=== PATIENT | female | born 1990 | race American Indian/Alaskan Native ===

== ENCOUNTER 2016-11-23 02:48 | Emergency (ER) | payer OTHER ==
[~2016-11-23] VITALS: Ht 157.5 cm; Wt 61.0 kg
[2016-11-23 03:09] VITALS: Ht 157.5 cm; Wt 61.0 kg
[2016-11-23 04:42] LABS: BASOPHIL # 0.1 10^3/ul (0.0-0.1); BASOPHILS % 0.5 % (0.0-2.0); EOSINOPHILS % 0.4 % (0.0-7.0); HEMATOCRIT 37.4 % (37.0-47.0); HEMOGLOBIN 12.5 g/dl (12.0-16.0); LYMPHOCYTES # 1.5 10^3/ul (0.8-2.9); LYMPHOCYTES % 13.6 % (15.0-51.0); MEAN CORPUSCULAR HEMOGLOBIN 29.8 pg (29.0-33.0); MEAN CORPUSCULAR HGB CONC 33.4 g/dl (32.0-37.0); MEAN CORPUSCULAR VOLUME 89.3 fl (82.0-101.0); MONOCYTE # 0.7 10^3/ul (0.3-0.9); MONOCYTES % 6.6 % (0.0-11.0); NEUTROPHILS % 78.4 % (39.0-77.0); PLATELET COUNT 321 10^3/UL (140-415); RED BLOOD COUNT 4.19 10^6/ul (4.20-5.40); RED CELL DISTRIBUTION WIDTH 13.1 % (11.5-14.5)
--- NOTE | 2016-11-23 04:43 | RADRPT ---
PROCEDURE: CT of the abdomen and pelvis without contrast CLINICAL INDICATION: Abdominal Pain. TECHNIQUE: Spiral CT images through the abdomen and pelvis without the use of contrast. The admin istered radiation dose is CTDI 7.55 and DLP 426.06. One or more of the following dose reduction brock hniques were used: automated exposure control, adjustment of the mA and/or kV according to patient s ize, or use of iterative reconstruction technique. COMPARISON: None FINDINGS: Lack of oral and intravenous contrast somewhat limits evaluation. The lung bases are clear. No p leural or pericardial effusion is seen.. The liver, spleen, adrenal glands and pancreas are normal in appearance. No evidence of cholelit hiasis or biliary ductal dilatation. The kidneys are normal in size and contour. There is no evide nce of hydronephrosis or nephrolithiasis.. The aorta is normal in caliber. No adenopathy or ascites . There is no evidence for bowel obstruction, free air, or abscess. The appendix is normal in appea tyra. . There is abundant stool in the sigmoid colon and rectum. The uterus and ovaries are identi fied. The bladder is decompressed. The osseous structures are intact. IMPRESSION: No definite acute abnormality of the abdomen or pelvis. RPTAT: HCNS Physician Victorino Date Time Electronically viewed and signed by Physician Victorino on 11/23/2016 04:43 CS/
--- NOTE | 2016-11-23 04:51 | ERD ---
ER Documentation Chief Complaint Date/Time DATE: 11/23/16 TIME: 04:51 Chief Complaint pelvic pain x4 hours. No dysuria or hematuria HPI 26-year-old female presents here in emergency department for complaints of suprapubic pelvic pain that started 4 hours prior to arrival. Patient states that she has not been going bowel movements regularly, last bowel movement was today, few bruna of stool. Patient states that she has been constipated. Patient does not have any nausea or vomiting. Patient does not have any fever or chills. Patient does not have any flank pain. ROS All systems reviewed and are negative except as per history of present illness. Medications Home Meds Reported Medications [none] Unknown Strength No Conflict Check 11/23/16 Allergies Allergies: Coded Allergies: No Known Allergy (Unverified , 11/23/16) PMhx/Soc Medical and Surgical Hx: pt denies Medical Hx, pt denies Surgical Hx Hx Alcohol Use: Yes Hx Substance Use: No Hx Tobacco Use: No Smoking Status: Never smoker FmHx Family History: No coronary disease, No diabetes, No other Physical Exam Vitals Vital Signs Date Time Temp Pulse Resp B/P Pulse Ox O2 Delivery O2 Flow Rate FiO2 11/23/16 03:09 98.3 95 18 123/81 99 Physical Exam GENERAL: The patient is well developed and appropriate for usual state of health, in no apparent distress. CHEST: Clear to auscultation bilaterally. There are no rales, wheezes or rhonchi. HEART: Regular rate and rhythm. No murmurs, clicks, rubs or gallops. No S3 or S4. ABDOMEN: Soft, nontender and nondistended. Good bowel sounds. No rebound or guarding. No gross peritonitis. No gross organomegaly or masses. No Coleman sign or McBurney point tenderness. BACK: No midline or flank tenderness. EXTREMITIES: Equal pulses bilaterally. There is no peripheral clubbing, cyanosis or edema. No focal swelling or erythema. Full range of motion. Grossly neurovascularly intact. NEURO: Alert and oriented. Cranial nerves 2-12 intact. Motor strength in all 4 extremities with 5/5 strength. Sensation grossly intact. Normal speech and gait. SKIN: There is no apparent rash or petechia. The skin is warm and dry. HEMATOLOGIC AND LYMPHATIC: There is no evidence of excessive bruising or lymphedema. No gross cervical, axillary, or inguinal lymphadenopathy. Result Diagram: 11/23/16 0412 11/23/16 0412 Results 24 hrs Laboratory Tests Test 11/23/16 04:12 White Blood Count 11.010^3/ul Red Blood Count 4.1910^6/ul Hemoglobin 12.5g/dl Hematocrit 37.4% Mean Corpuscular Volume 89.3fl Mean Corpuscular Hemoglobin 29.8pg Mean Corpuscular Hemoglobin Concent 33.4g/dl Red Cell Distribution Width 13.1% Platelet Count 81949^3/UL Mean Platelet Volume 10.0fl Neutrophils % 78.4% Lymphocytes % 13.6% Monocytes % 6.6% Eosinophils % 0.4% Basophils % 0.5% Nucleated Red Blood Cells % 0.0/100WBC Neutrophils # (Manual) 8.610^3/ul Lymphocytes # 1.510^3/ul Monocytes # 0.710^3/ul Eosinophils # 0.010^3/ul Basophils # 0.110^3/ul Nucleated Red Blood Cells # 0.010^3/ul Sodium Level 143mmol/L Potassium Level 3.3mmol/L Chloride Level 103mmol/L Carbon Dioxide Level 24mmol/L Anion Gap 19 Blood Urea Nitrogen 7mg/dl Creatinine 0.73mg/dl Glucose Level 107mg/dl Calcium Level 9.3mg/dl Total Bilirubin 0.1mg/dl Direct Bilirubin 0.00mg/dl Indirect Bilirubin 0.1mg/dl Aspartate Amino Transf (AST/SGOT) 24IU/L Alanine Aminotransferase (ALT/SGPT) 29IU/L Alkaline Phosphatase 102IU/L Total Protein 8.1g/dl Albumin 4.5g/dl Globulin 3.60g/dl Albumin/Globulin Ratio 1.25 Lipase 78U/L PROCEDURE: CT of the abdomen and pelvis without contrast CLINICAL INDICATION: Abdominal Pain. TECHNIQUE: Spiral CT images through the abdomen and pelvis without the use of contrast. The administered radiation dose is CTDI 7.55 and DLP 426.06. One or more of the following dose reduction techniques were used: automated exposure control, adjustment of the mA and/or kV according to patient size, or use of iterative reconstruction technique. COMPARISON: None FINDINGS: Lack of oral and intravenous contrast somewhat limits evaluation. The lung bases are clear. No pleural or pericardial effusion is seen.. The liver, spleen, adrenal glands and pancreas are normal in appearance. No evidence of cholelithiasis or biliary ductal dilatation. The kidneys are normal in size and contour. There is no evidence of hydronephrosis or nephrolithiasis.. The aorta is normal in caliber. No adenopathy or ascites. There is no evidence for bowel obstruction, free air, or abscess. The appendix is normal in appearance. . There is abundant stool in the sigmoid colon and rectum. The uterus and ovaries are identified. The bladder is decompressed. The osseous structures are intact. IMPRESSION: No definite acute abnormality of the abdomen or pelvis. RPTAT: HCNS Physician Victorino Date Time Electronically viewed and signed by Physician Victorino on 11/23/2016 04: 43 CS/ PROCEDURE: US Pelvis. CLINICAL INDICATION: pelvic pain , LMP 11/06/2016 TECHNIQUE: Multiple sonographic images of the pelvis were obtained utilizing a transabdominal technique. The images were reviewed on a PACS workstation. COMPARISON: None. FINDINGS: The exam is limited due to bowel gas and underdistended bladder. The uterus and ovaries are not visualized. No free fluid or adnexal mass is seen. IMPRESSION: Limited transabdominal exam. The uterus and ovaries are obscured by bowel gas. Physician Victorino Date Time Electronically viewed and signed by Physician Victorino on 11/23/2016 05: 28 CS/ CC: MEGHA PEDRO NP Procedures/MDM Medical Decision Making: Patient's pelvic pain abdominal pain nonspecific at this time, can be from constipation. Patient's pain is controlled at this time. No urinary tract infection noted. The suspicion for ovarian torsion.There is low suspicion for abdominal emergencies at this time. Patients abdominal exam is normal at this time. Patients radiology exam does not show any abdominal emergencies at this time. There is low suspicion for appendicitis, cholecystitis , abdominal aortic aneurysms or peritonitis at this time. There is low suspicion for sepsis. Patient appears well and is hemodynamically stable. Disposition: Home. Condition: Stable Prescription miraLAX, Colace tramadol Instructions: Patient is advised to take medications as prescribed. Patient is advised to rest, increase fluid intake and do high fiber diet for next 1-2 days and progress as tolerated. Patient is advised that if symptoms are worse, severe abdominal pain, uncontrolled vomiting, high fever, severe flank pain, worst signs and symptoms, to return to the emergency department immediately. Otherwise, patient can follow up with primary care doctor in 5-7 days. Departure Diagnosis: Primary Impression: Pelvic pain Additional Impression: Constipation Constipation type: unspecified constipation type Qualified Code: K59.00 - Constipation, unspecified constipation type Condition: Stable Patient Instructions: Constipation (Adult), Pelvic Pain, Unknown Cause Additional Instructions: Patient is advised to take medications as prescribed. Patient is advised to rest , increase fluid intake and do high fiber diet for next 1-2 days and progress as tolerated. Patient is advised that if symptoms are worse, severe abdominal pain, uncontrolled vomiting, high fever, severe flank pain, worst signs and symptoms, to return to the emergency department immediately. Otherwise, patient can follow up with primary care doctor in 5-7 days. MEGHA PEDRO NP Nov 23, 2016 04:51
[2016-11-23 04:53] LABS: ALBUMIN 4.5 g/dl (3.3-4.9); ALBUMIN/GLOBULIN RATIO 1.25; BILIRUBIN,INDIRECT 0.1 mg/dl (0-1.1); BILIRUBIN,TOTAL 0.1 mg/dl (0.2-1.3); CALCIUM 9.3 mg/dl (8.4-10.2); CREATININE 0.73 mg/dl (0.44-1.00); POTASSIUM 3.3 mmol/L (3.5-5.1); TOTAL PROTEIN 8.1 g/dl (6.1-8.1)
--- NOTE | 2016-11-23 05:28 | RADRPT ---
PROCEDURE: US Pelvis. CLINICAL INDICATION: pelvic pain , LMP 11/06/2016 TECHNIQUE: Multiple sonographic images of the pelvis were obtained utilizing a transabdominal te chnique. The images were reviewed on a PACS workstation. COMPARISON: None. FINDINGS: The exam is limited due to bowel gas and underdistended bladder. The uterus and ovaries are not visu alized. No free fluid or adnexal mass is seen. IMPRESSION: Limited transabdominal exam. The uterus and ovaries are obscured by bowel gas. Physician Victorino Date Time Electronically viewed and signed by Physician Victorino on 11/23/2016 05:28 /
[2016-11-23 05:33] LABS: URINE BLOOD (Dip) POC Trace-intact (NEGATIVE)
[2016-11-23] MEDS ORDERED: POLY17PO6 PO (05:43)
[2016-11-23] MEDS ORDERED: DOCU-144 PO (05:43)
[2016-11-23] MEDS ORDERED: TRAM50TA2 PO (05:43)
== END 2016-11-23 07:09 | disposition home or self-care (01) ==
LOC: FTE 02:48
DX: R10.2 Pelvic and perineal pain (principal); K59.00 Constipation, unspecified
CPT/HCPCS: 36415; 74176; 76856; 80053; 81003; 83690; 85025